=== PATIENT | female | born 1935 | race Caucasian/White ===

== ENCOUNTER 2022-06-24 20:28 | Inpatient (IN) | payer OTHER ==
[2022-06-24 23:39] LABS: #Eosinphils 0.4 thou/uL (0.0-0.7); #Lymphocytes 4.9 thou/uL (1.20-3.40); #Monocytes 0.9 thou/uL (0.11-0.59); %Basophils 0.3 % (0.0-1.0); %Eosinophils 2.6 % (0.0-10.0); %Lymphocytes 32.3 % (21.0-51.0); %Monocytes 5.7 % (0.0-10.0); %Neutrophils 59.2 % (42.0-75.0); Hemoglobin 11.3 g/dL (12.0-16.0); Mean Corpuscular HGB CONC 32.6 g/dL (32.0-36.0); Mean Corpuscular Hemoglobin 30.3 pg (27.0-31.0); Mean Corpuscular Volume 92.8 fL (78.0-98.0); Mean Platelet Volume 9.2 fL (7.4-10.4); Platelet Count 203 thou/uL (130-400); RBC Distribution Width 13.6 % (11.5-14.5); Red Blood Cell (RBC) Count 3.73 mill/uL (4.20-5.40); White Blood Cell (WBC) Count 15.2 thou/uL (4.8-10.8)
[2022-06-24 23:56] LABS: ALT (SGPT) 10 U/L (8-55); AST (SGOT) 12 U/L (5-34); Albumin 3.9 g/dL (3.4-4.8); Alkaline Phosphatase 74 U/L (40-110); Anion Gap 14 mmol/L (10-20); BUN (Urea Nitrogen) 29 mg/dL (9.8-20.1); Bilirubin, Total 0.5 mg/dL (0.2-1.2); Calc. Creatinine Clearance 0 mL/min (70-130); Calcium 9.5 mg/dL (7.8-10.44); Carbon Dioxide 21 mmol/L (23-31); Chloride 111 mmol/L (98-107); Estimated GFR 33; Globulin 2.5 g/dL (2.4-3.5); Glucose 120 mg/dL (83-110); Potassium 4.4 mmol/L (3.5-5.1); Protein, Total 6.4 g/dL (5.8-8.1); Sodium 142 mmol/L (136-145)
[2022-06-25 00:09] LABS: SARS-CoV-2 NAA Rapid Test Not Detected (NotDetected)
[2022-06-25] MEDS ORDERED: Ondansetron PF 4 MG/2 ML Vial IVP PRN (05:07)
[2022-06-25 05:58] LABS: #Basophils 0.1 thou/uL (0.0-0.2); #Eosinphils 0.4 thou/uL (0.0-0.7); #Lymphocytes 5.8 thou/uL (1.20-3.40); #Monocytes 0.8 thou/uL (0.11-0.59); #Neutrophils 7.3 thou/uL (1.40-6.50); %Basophils 0.4 % (0.0-1.0); %Eosinophils 2.9 % (0.0-10.0); %Lymphocytes 40.4 % (21.0-51.0); %Monocytes 5.6 % (0.0-10.0); %Neutrophils 50.7 % (42.0-75.0); Hemoglobin 11.5 g/dL (12.0-16.0); Mean Corpuscular HGB CONC 32.8 g/dL (32.0-36.0); Mean Corpuscular Hemoglobin 30.5 pg (27.0-31.0); Mean Platelet Volume 9.4 fL (7.4-10.4); Platelet Count 186 thou/uL (130-400); RBC Distribution Width 13.7 % (11.5-14.5); Red Blood Cell (RBC) Count 3.78 mill/uL (4.20-5.40); White Blood Cell (WBC) Count 14.4 thou/uL (4.8-10.8)
[2022-06-25 06:22] LABS: Anion Gap 13 mmol/L (10-20); BUN (Urea Nitrogen) 26 mg/dL (9.8-20.1); Calc. Creatinine Clearance 0 mL/min (70-130); Calcium 9.7 mg/dL (7.8-10.44); Carbon Dioxide 21 mmol/L (23-31); Chloride 108 mmol/L (98-107); Estimated GFR 39; Glucose 102 mg/dL (83-110); Magnesium 1.9 mg/dL (1.6-2.6); Sodium 138 mmol/L (136-145)
[2022-06-25 09:02] LABS: Bacteria/HPF 2+ HPF (None Seen); Bilirubin Negative (Negative); Blood, Urine Trace (Negative); Clarity Clear (Clear); Glucose, Urine (Dipstick) Normal (Negative); Ketone, Urine Negative (Negative); Leukocyte 250 Leu/uL (Negative); Nitrite Negative (Negative); Protein, Urine (Dipstick) 50 mg/dL (Neg-Trace); RBC/HPF 0-3 HPF (0-3); Squamous Epithelial 0-3 HPF (0-3); Urobilinogen Normal mg/dL (Less than 2); WBC/HPF 21-50 HPF (0-3); pH, Urine 6.5 (5.0-9.0)
[2022-06-25 09:05] LABS: Urine Culture Reflex Yes Yes
[2022-06-25 10:21] LABS: Troponin I 0.011 ng/mL (< 0.028)
[2022-06-25] MEDS ORDERED: Electrolyte Replacement Protocol 1 EACH FS SCH (10:45)
[2022-06-25] MEDS ORDERED: Magnesium 2 GM/50 ML(in water) 2 GM in Premix Bag 1 BAG IVPB SCH (10:45)
[2022-06-25] MEDS: cefTRIAXone\\ROCEPHIN 1 GM in Sodium Chloride 0.9% 100 ML IVPB SCH (11:47)
[2022-06-25] MEDS ORDERED: Lidocaine 1% 50ML VIAL ONE (12:20)
[2022-06-25] MEDS ORDERED: Gentamicin 80 MG/2 ML VIAL ONE (12:24)
[2022-06-25] MEDS ORDERED: hydrALAZINE 20 MG/ML VIAL SLOW IVP PRN (12:40)
[2022-06-25] MEDS ORDERED: Midazolam HCl 2 mg/2 ml Vial ONE (13:24)
[2022-06-25] MEDS ORDERED: fentaNYL Citrate/PF 100 MCG/2 ML SYRINGE ONE (13:25)
[2022-06-25] MEDS ORDERED: Dexmedetomidine 200 MCG/2 ML VIAL ONE (13:25)
[2022-06-25] MEDS ORDERED: Clindamycin/D5W 900 mg/50 ml Premix Bag ONE (13:37)
[2022-06-25] MEDS ORDERED: ePHEDrine 50 MG/ML VIAL ONE (13:56)
[2022-06-25] MEDS ORDERED: PROPOFOL 200 MG/20 ML VIAL ONE (13:56)
[2022-06-25] MEDS ORDERED: Lidocaine 1% MPF 2 ML VIAL ONE (13:56)
[2022-06-25] MEDS ORDERED: Ondansetron PF 4 MG/2 ML Vial ONE (13:56)
[2022-06-25] MEDS ORDERED: Amiodarone 150 MG/3 ML VIAL ONE (15:14)
[2022-06-25] MEDS ORDERED: Ondansetron HCl/PF 4 MG/2 ML Vial IVP PRN (15:39)
[2022-06-25] MEDS ORDERED: Promethazine HCl 25 MG/ML VIAL IM PRN (15:39)
[2022-06-25] MEDS ORDERED: Promethazine HCl 25 MG/ML VIAL IVPB PRN (15:39)
[2022-06-25] MEDS: Dronedarone HCl 400 MG TAB PO SCH (16:47)
[2022-06-25] MEDS: hydrALAZINE 10 MG TAB PO SCH ×2 (16:47→20:30)
[2022-06-25] MEDS: Acetaminophen 325 MG TAB PO PRN (16:50)
[2022-06-25 17:01] VITALS: BMI 37.2
[2022-06-25] MEDS: Acetaminophen/Codeine 30-300mg Tablet PO PRN ×2 (19:13→23:33)
[2022-06-25] MEDS: Doxycycline 100 MG CAP PO SCH (20:29)
[2022-06-26 04:31] LABS: #Basophils 0.1 thou/uL (0.0-0.2); #Eosinphils 0.3 thou/uL (0.0-0.7); #Lymphocytes 4.1 thou/uL (1.20-3.40); #Monocytes 0.9 thou/uL (0.11-0.59); #Neutrophils 10.2 thou/uL (1.40-6.50); %Basophils 0.3 % (0.0-1.0); %Eosinophils 2.2 % (0.0-10.0); %Lymphocytes 26.3 % (21.0-51.0); %Monocytes 5.6 % (0.0-10.0); %Neutrophils 65.5 % (42.0-75.0); Mean Corpuscular HGB CONC 33.3 g/dL (32.0-36.0); Mean Corpuscular Hemoglobin 31.2 pg (27.0-31.0); Mean Corpuscular Volume 93.7 fL (78.0-98.0); Mean Platelet Volume 9.7 fL (7.4-10.4); Platelet Count 196 thou/uL (130-400); RBC Distribution Width 13.7 % (11.5-14.5); Red Blood Cell (RBC) Count 3.53 mill/uL (4.20-5.40); White Blood Cell (WBC) Count 15.6 thou/uL (4.8-10.8)
[2022-06-26 04:43] LABS: Anion Gap 11 mmol/L (10-20); BUN (Urea Nitrogen) 23 mg/dL (9.8-20.1); Calc. Creatinine Clearance 45 mL/min (70-130); Calcium 8.7 mg/dL (7.8-10.44); Carbon Dioxide 22 mmol/L (23-31); Chloride 109 mmol/L (98-107); Estimated GFR 36; Glucose 111 mg/dL (83-110); Potassium 4.2 mmol/L (3.5-5.1); Sodium 138 mmol/L (136-145)
[2022-06-26] MEDS ORDERED: Losartan 25 MG TAB PO SCH (09:00)
[2022-06-26] MEDS ORDERED: Non-Formulary Item 1 EACH (Losartan Potassium [Cozaar] 50 MG Tab) PO SCH (09:00)
[2022-06-26] MEDS ORDERED: Non-Formulary Item 1 EACH (Sertraline Hcl [Sertraline Hcl] 50 MG Tablet) PO SCH (09:00)
[2022-06-26] MEDS ORDERED: Non-Formulary Item 1 EACH (Omeprazole [Omeprazole] 20 MG Capsule.Dr) PO SCH (09:00)
[2022-06-26] MEDS: Dronedarone HCl 400 MG TAB PO SCH ×2 (09:10→17:57)
[2022-06-26] MEDS: hydrALAZINE 10 MG TAB PO SCH ×3 (09:11→21:49)
[2022-06-26] MEDS: Amlodipine 10 MG TAB PO SCH (09:11)
[2022-06-26] MEDS: Doxycycline 100 MG CAP PO SCH ×2 (09:11→21:50)
[2022-06-26] MEDS: cefTRIAXone\\ROCEPHIN 1 GM in Sodium Chloride 0.9% 100 ML IVPB SCH (09:17)
[2022-06-26] MEDS: Acetaminophen/Codeine 30-300mg Tablet PO PRN ×2 (14:01→21:55)
[2022-06-27 04:04] LABS: #Eosinphils 0.4 thou/uL (0.0-0.7); #Monocytes 1.2 thou/uL (0.11-0.59); #Neutrophils 8.7 thou/uL (1.40-6.50); %Basophils 0.3 % (0.0-1.0); %Eosinophils 2.6 % (0.0-10.0); %Monocytes 8.2 % (0.0-10.0); %Neutrophils 60.9 % (42.0-75.0); Hemoglobin 10.4 g/dL (12.0-16.0); Mean Corpuscular HGB CONC 32.2 g/dL (32.0-36.0); Mean Corpuscular Hemoglobin 30.7 pg (27.0-31.0); Mean Corpuscular Volume 95.3 fL (78.0-98.0); Mean Platelet Volume 9.6 fL (7.4-10.4); Platelet Count 200 thou/uL (130-400); Red Blood Cell (RBC) Count 3.38 mill/uL (4.20-5.40); White Blood Cell (WBC) Count 14.3 thou/uL (4.8-10.8)
[2022-06-27 04:30] LABS: Anion Gap 13 mmol/L (10-20); BUN (Urea Nitrogen) 28 mg/dL (9.8-20.1); Calc. Creatinine Clearance 31 mL/min (70-130); Calcium 8.8 mg/dL (7.8-10.44); Carbon Dioxide 21 mmol/L (23-31); Chloride 106 mmol/L (98-107); Estimated GFR 24; Glucose 110 mg/dL (83-110); Magnesium 1.9 mg/dL (1.6-2.6); Potassium 4.6 mmol/L (3.5-5.1); Sodium 135 mmol/L (136-145)
[2022-06-27] MEDS ORDERED: Magnesium 2 GM/50 ML(in water) 2 GM in Premix Bag 1 BAG IVPB SCH (08:00)
[2022-06-27] MEDS: Sodium Chloride 0.9% 1,000 ML IV SCH ×2 (09:53→21:55)
[2022-06-27] MEDS: Dronedarone HCl 400 MG TAB PO SCH ×2 (09:54→16:53)
[2022-06-27] MEDS: Doxycycline 100 MG CAP PO SCH ×2 (09:55→21:54)
[2022-06-27] MEDS: Amlodipine 10 MG TAB PO SCH (09:55)
[2022-06-27] MEDS: cefTRIAXone\\ROCEPHIN 1 GM in Sodium Chloride 0.9% 100 ML IVPB SCH (09:56)
[2022-06-27] MEDS: Acetaminophen 325 MG TAB PO PRN (09:56)
[2022-06-27] MEDS: hydrALAZINE 10 MG TAB PO SCH ×3 (09:56→21:54)
[2022-06-27] MEDS: Acetaminophen/Codeine 30-300mg Tablet PO PRN (12:01)
[2022-06-27] MEDS ORDERED: Cefdinir 300 MG CAP PO SCH ×2 (21:00→22:00)
[2022-06-28 05:13] LABS: Anion Gap 14 mmol/L (10-20); BUN (Urea Nitrogen) 38 mg/dL (9.8-20.1); Calc. Creatinine Clearance 26 mL/min (70-130); Calcium 8.7 mg/dL (7.8-10.44); Carbon Dioxide 20 mmol/L (23-31); Chloride 105 mmol/L (98-107); Estimated GFR 19; Glucose 87 mg/dL (83-110); Magnesium 2.4 mg/dL (1.6-2.6); Potassium 4.4 mmol/L (3.5-5.1); Sodium 135 mmol/L (136-145)
[2022-06-28 05:27] LABS: #Basophils 0.1 thou/uL (0.0-0.2); #Eosinphils 0.3 thou/uL (0.0-0.7); #Lymphocytes 3.4 thou/uL (1.20-3.40); #Monocytes 0.9 thou/uL (0.11-0.59); #Neutrophils 8.7 thou/uL (1.40-6.50); %Basophils 0.4 % (0.0-1.0); %Eosinophils 2.4 % (0.0-10.0); %Lymphocytes 25.6 % (21.0-51.0); %Monocytes 6.5 % (0.0-10.0); %Neutrophils 65.2 % (42.0-75.0); Hemoglobin 10.2 g/dL (12.0-16.0); Mean Corpuscular HGB CONC 32.4 g/dL (32.0-36.0); Mean Corpuscular Hemoglobin 30.7 pg (27.0-31.0); Mean Corpuscular Volume 94.8 fL (78.0-98.0); Mean Platelet Volume 9.3 fL (7.4-10.4); Platelet Count 187 thou/uL (130-400); RBC Distribution Width 13.8 % (11.5-14.5); Red Blood Cell (RBC) Count 3.32 mill/uL (4.20-5.40); White Blood Cell (WBC) Count 13.3 thou/uL (4.8-10.8)
[2022-06-28] MEDS: Sodium Chloride 0.9% 1,000 ML IV SCH (06:24)
[2022-06-28] MEDS: Amlodipine 10 MG TAB PO SCH (08:07)
[2022-06-28] MEDS: Doxycycline 100 MG CAP PO SCH (08:07)
[2022-06-28] MEDS: hydrALAZINE 10 MG TAB PO SCH (08:08)
[2022-06-28] MEDS: Dronedarone HCl 400 MG TAB PO SCH (08:08)
[2022-06-28] MEDS ORDERED: Saccharomyces boulardii 250 MG CAP PO SCH (09:00)
[2022-06-28 11:41] VITALS: BP 115/56; TEMP 98.1
[2022-06-28] MEDS ORDERED: Cefdinir 300 MG CAP PO SCH (21:00)
== END 2022-06-28 14:26 | disposition home or self-care (01) | DRG 243 ==
LOC: ERS 20:28 → IMCU/EMU 22:25 → ERHOLD 22:38 → IMCU/EMU 06-25 09:27 → OBSVTOIN 06-26 18:21 → 2NO 06-27 17:06
PROVIDERS: ADMIT Internal Medicine; ATTEND Internal Medicine
PROC: 0JH606Z Insertion of Pacemaker, Dual Chamber into Chest Subcutaneous Tissue and Fascia, Open Approach (ICD-10-PCS; principal; 2022-06-25)
PROC: 02H60JZ Insertion of Pacemaker Lead into Right Atrium, Open Approach (ICD-10-PCS; 2022-06-25)
PROC: 02HK0JZ Insertion of Pacemaker Lead into Right Ventricle, Open Approach (ICD-10-PCS; 2022-06-25)
DX: I49.5 Sick sinus syndrome (principal); N17.9 Acute kidney failure, unspecified; N39.0 Urinary tract infection, site not specified; Z20.822 Contact with and (suspected) exposure to COVID-19; D63.1 Anemia in chronic kidney disease; N18.30 Chronic kidney disease, stage 3 unspecified; R00.1 Bradycardia, unspecified; I12.9 Hypertensive chronic kidney disease with stage 1 through stage 4 chronic kidney disease, or unspecified chronic kidney disease; K21.9 Gastro-esophageal reflux disease without esophagitis; F03.90 Unspecified dementia, unspecified severity, without behavioral disturbance, psychotic disturbance, mood disturbance, and anxiety; E83.42 Hypomagnesemia; E66.9 Obesity, unspecified; F41.9 Anxiety disorder, unspecified; D72.829 Elevated white blood cell count, unspecified; B96.20 Unspecified Escherichia coli [E. coli] as the cause of diseases classified elsewhere; D53.9 Nutritional anemia, unspecified; I48.91 Unspecified atrial fibrillation; Z88.0 Allergy status to penicillin; Z98.890 Other specified postprocedural states; Z68.37 Body mass index [BMI] 37.0-37.9, adult
CPT/HCPCS: 33208; 36415; 71045; 76942; 80048; 80053; 81001; 83735; 84443; 84484; 85025; 87077; 87086; 87186; 92960; 93005; 93010; 93306; 93798; 96374; 96375; 96376; C1785; C1898; G0378; J0282; J0360; J0696; J1580; J2250; J2405; J2704; J3475; J3490; J7050; U0002

== ENCOUNTER 2022-07-08 20:06 | Inpatient (IN) | payer OTHER ==
[2022-07-08 20:55] LABS: Hemoglobin 11.8 g/dL (12.0-16.0); Mean Corpuscular HGB CONC 31.8 g/dL (32.0-36.0); Mean Corpuscular Hemoglobin 29.5 pg (27.0-31.0); Mean Corpuscular Volume 92.5 fL (78.0-98.0); Platelet Count 300 thou/uL (130-400); RBC Distribution Width 13.7 % (11.5-14.5); White Blood Cell (WBC) Count 24.3 thou/uL (4.8-10.8)
[2022-07-08 21:16] LABS: ALT (SGPT) 10 U/L (8-55); AST (SGOT) 14 U/L (5-34); Albumin 4.2 g/dL (3.4-4.8); Alkaline Phosphatase 79 U/L (40-110); Anion Gap 12 mmol/L (10-20); BUN (Urea Nitrogen) 27 mg/dL (9.8-20.1); Bilirubin, Total 0.8 mg/dL (0.2-1.2); Calc. Creatinine Clearance 0 mL/min (70-130); Carbon Dioxide 23 mmol/L (23-31); Chloride 107 mmol/L (98-107); Estimated GFR 27; Globulin 3.2 g/dL (2.4-3.5); Glucose 116 mg/dL (83-110); Lipase 98 U/L (8-78); Potassium 4.2 mmol/L (3.5-5.1); Protein, Total 7.4 g/dL (5.8-8.1); Sodium 138 mmol/L (136-145)
[2022-07-08 21:21] LABS: Band 2 % (5-11); Lymphocytes 39 % (21-51); MDiff Complete? YES; Monocytes 1 % (0-10); Neutrophil 58 % (42-75)
[2022-07-08] MEDS ORDERED: Cefepime 2 GM VIAL ONE (23:06)
[2022-07-08 23:07] LABS: Bilirubin Negative (Negative); Blood, Urine Trace (Negative); Clarity Clear (Clear); Glucose, Urine (Dipstick) Normal (Negative); Ketone, Urine Negative (Negative); Leukocyte Negative Leu/uL (Negative); Nitrite Negative (Negative); Protein, Urine (Dipstick) 200 mg/dL (Neg-Trace); Specific Gravity, Urine 1.018 (1.002-1.036); Urobilinogen Normal mg/dL (Less than 2)
[2022-07-08 23:17] LABS: Bacteria/HPF 1+ HPF (None Seen); RBC/HPF 0-3 HPF (0-3); WBC/HPF 0-3 HPF (0-3); Yeast-Budding Rare HPF (None Seen)
[2022-07-09] MEDS ORDERED: Ondansetron PF 4 MG/2 ML Vial ONE (00:58)
[2022-07-09] MEDS ORDERED: Ondansetron PF 4 MG/2 ML Vial IVP PRN (01:49)
[2022-07-09] MEDS ORDERED: Acetaminophen 325 MG TAB PO PRN (01:49)
[2022-07-09] MEDS ORDERED: Pantoprazole 40 MG VIAL IVP SCH ×3 (02:00→10:15)
[2022-07-09] MEDS ORDERED: Sodium Chloride 0.9% 1,000 ML IV SCH (02:00)
[2022-07-09] MEDS ORDERED: Docusate 100 MG CAP PO PRN (02:06)
[2022-07-09 02:55] VITALS: BMI 35.9
[2022-07-09] MEDS: metroNIDAZOLE 500 MG in Premix Bag 1 BAG IVPB SCH ×3 (03:41→22:03)
[2022-07-09 04:35] LABS: ALT (SGPT) 7 U/L (8-55); AST (SGOT) 13 U/L (5-34); Albumin 3.8 g/dL (3.4-4.8); Alkaline Phosphatase 70 U/L (40-110); Anion Gap 12 mmol/L (10-20); BUN (Urea Nitrogen) 28 mg/dL (9.8-20.1); Bilirubin, Total 0.6 mg/dL (0.2-1.2); Calc. Creatinine Clearance 38 mL/min (70-130); Calcium 9.4 mg/dL (7.8-10.44); Carbon Dioxide 22 mmol/L (23-31); Chloride 107 mmol/L (98-107); Estimated GFR 30; Globulin 3.1 g/dL (2.4-3.5); Glucose 118 mg/dL (83-110); Lipase 63 U/L (8-78); Potassium 4.4 mmol/L (3.5-5.1); Protein, Total 6.9 g/dL (5.8-8.1); Sodium 137 mmol/L (136-145)
[2022-07-09 04:54] LABS: Band 1 % (5-11); Hemoglobin 11.6 g/dL (12.0-16.0); Lymphocytes 34 % (21-51); MDiff Complete? YES; Mean Corpuscular HGB CONC 32.1 g/dL (32.0-36.0); Mean Corpuscular Hemoglobin 29.9 pg (27.0-31.0); Mean Corpuscular Volume 93.1 fL (78.0-98.0); Mean Platelet Volume 9.1 fL (7.4-10.4); Monocytes 5 % (0-10); Neutrophil 59 % (42-75); Platelet Count 264 thou/uL (130-400); RBC Distribution Width 13.7 % (11.5-14.5); Reactive Lymphocytes 1 % (0-10); Red Blood Cell (RBC) Count 3.89 mill/uL (4.20-5.40); White Blood Cell (WBC) Count 24.3 thou/uL (4.8-10.8)
[2022-07-09] MEDS: Dronedarone HCl 400 MG TAB PO SCH ×2 (08:59→17:50)
[2022-07-09] MEDS: Apixaban 2.5 MG TAB PO SCH ×2 (08:59→22:03)
[2022-07-09] MEDS: Polyethylene Glycol 3350 17 GM Packet PO SCH (09:00)
[2022-07-09] MEDS ORDERED: FLU VACC QS2022-23(65YR UP)/PF 240 MCG/0.7 ML SYRINGE IM ONE (09:00)
[2022-07-09] MEDS: cefTRIAXone\\ROCEPHIN 2 GM in Sodium Chloride 0.9% 100 ML IVPB SCH (11:10)
[2022-07-09] MEDS: Pantoprazole 40 MG VIAL IVP SCH (22:03)
[2022-07-10] MEDS: metroNIDAZOLE 500 MG in Premix Bag 1 BAG IVPB SCH ×2 (03:35→11:32)
[2022-07-10 05:08] LABS: #Basophils 0.1 thou/uL (0.0-0.2); #Eosinphils 0.3 thou/uL (0.0-0.7); #Neutrophils 10.7 thou/uL (1.40-6.50); %Basophils 0.5 % (0.0-1.0); %Eosinophils 1.6 % (0.0-10.0); %Lymphocytes 29.4 % (21.0-51.0); %Monocytes 6.1 % (0.0-10.0); %Neutrophils 62.4 % (42.0-75.0); Hemoglobin 10.1 g/dL (12.0-16.0); Mean Corpuscular HGB CONC 32.3 g/dL (32.0-36.0); Mean Corpuscular Hemoglobin 30.3 pg (27.0-31.0); Mean Corpuscular Volume 93.8 fL (78.0-98.0); Mean Platelet Volume 9.1 fL (7.4-10.4); Platelet Count 219 thou/uL (130-400); RBC Distribution Width 13.5 % (11.5-14.5); Red Blood Cell (RBC) Count 3.33 mill/uL (4.20-5.40); White Blood Cell (WBC) Count 17.1 thou/uL (4.8-10.8)
[2022-07-10 05:19] LABS: Lactic Acid 0.7 mmol/L (0.5-2.2)
[2022-07-10 05:28] LABS: ALT (SGPT) Less than 7 U/L (8-55); AST (SGOT) 17 U/L (5-34); Albumin 3.2 g/dL (3.4-4.8); Alkaline Phosphatase 60 U/L (40-110); Anion Gap 13 mmol/L (10-20); BUN (Urea Nitrogen) 25 mg/dL (9.8-20.1); Bilirubin, Total 0.4 mg/dL (0.2-1.2); Calc. Creatinine Clearance 38 mL/min (70-130); Carbon Dioxide 19 mmol/L (23-31); Chloride 112 mmol/L (98-107); Estimated GFR 31; Globulin 2.9 g/dL (2.4-3.5); Glucose 94 mg/dL (83-110); Potassium 4.5 mmol/L (3.5-5.1); Protein, Total 6.1 g/dL (5.8-8.1); Sodium 139 mmol/L (136-145)
[2022-07-10] MEDS: Polyethylene Glycol 3350 17 GM Packet PO SCH (07:57)
[2022-07-10] MEDS: Apixaban 2.5 MG TAB PO SCH (07:57)
[2022-07-10] MEDS: Dronedarone HCl 400 MG TAB PO SCH ×2 (07:57→17:08)
[2022-07-10] MEDS: Pantoprazole 40 MG VIAL IVP SCH (07:58)
[2022-07-10] MEDS: cefTRIAXone\\ROCEPHIN 2 GM in Sodium Chloride 0.9% 100 ML IVPB SCH (11:25)
[2022-07-10 12:27] VITALS: BP 140/74; TEMP 98.6
== END 2022-07-10 17:41 | DRG 392 ==
LOC: ERS 20:06 → 2NO 07-09 01:28 → OBSVTOIN 07-10 11:11
PROVIDERS: ADMIT Internal Medicine; ATTEND Internal Medicine Geriatric Medicine
DX: K57.92 Diverticulitis of intestine, part unspecified, without perforation or abscess without bleeding (principal); I50.32 Chronic diastolic (congestive) heart failure; I13.0 Hypertensive heart and chronic kidney disease with heart failure and stage 1 through stage 4 chronic kidney disease, or unspecified chronic kidney disease; I48.0 Paroxysmal atrial fibrillation; I49.5 Sick sinus syndrome; N18.30 Chronic kidney disease, stage 3 unspecified; K21.9 Gastro-esophageal reflux disease without esophagitis; F03.90 Unspecified dementia, unspecified severity, without behavioral disturbance, psychotic disturbance, mood disturbance, and anxiety; K44.9 Diaphragmatic hernia without obstruction or gangrene; D72.829 Elevated white blood cell count, unspecified; J45.909 Unspecified asthma, uncomplicated; F32.A Depression, unspecified; Z20.822 Contact with and (suspected) exposure to COVID-19; Z95.0 Presence of cardiac pacemaker; Z88.5 Allergy status to narcotic agent; Z88.0 Allergy status to penicillin; Z88.1 Allergy status to other antibiotic agents; Z79.01 Long term (current) use of anticoagulants; Z79.82 Long term (current) use of aspirin; Z79.51 Long term (current) use of inhaled steroids; Z79.899 Other long term (current) drug therapy; Z98.890 Other specified postprocedural states
CPT/HCPCS: 36415; 51701; 71045; 74176; 80053; 81003; 81015; 83605; 83690; 84145; 84484; 85025; 85060; 87040; 87086; 88184; 88185; 93005; 96365; 96366; 96367; 96375; 96376; C9113; G0378; J0692; J0696; J2405; J3490; J7050; U0003; U0005

== ENCOUNTER 2024-06-29 13:08 | Emergency (ER) | payer MEDICARE, OTHER ==
[2024-06-29 14:06] LABS: #Basophils 0.04 10x3/uL (0.0-0.2); %Basophils 0.3 % (0.0-1.0); %Eosinophils 4.3 % (0.0-10.0); %Lymphocytes 35.6 % (21.0-51.0); %Monocytes 6.8 % (0.0-10.0); %Neutrophils 52.5 % (42.0-75.0); Hematocrit 25.9 % (36.0-47.0); Mean Corpuscular HGB CONC 30.9 g/dL (32.0-36.0); Mean Corpuscular Hemoglobin 30.1 pg (27.0-31.0); Mean Corpuscular Volume 97.4 fL (78.0-98.0); Mean Platelet Volume 11.1 fL (7.4-10.4); Platelet Count 291 10x3/uL (130-400); RBC Distribution Width 15.3 % (11.5-14.5); Red Blood Cell (RBC) Count 2.66 mill/uL (4.20-5.40)
[2024-06-29 14:38] LABS: ALT (SGPT) 6 U/L (8-55); AST (SGOT) 10 U/L (5-34); Albumin 3.4 g/dL (3.4-4.8); Alkaline Phosphatase 76 U/L (40-110); Anion Gap 16 mmol/L (10-20); BUN (Urea Nitrogen) 35 mg/dL (9.8-20.1); Bilirubin, Total 0.3 mg/dL (0.2-1.2); Calc. Creatinine Clearance 0 mL/min (70-130); Calcium 9.1 mg/dL (7.8-10.44); Carbon Dioxide 18 mmol/L (23-31); Chloride 115 mmol/L (98-107); Estimated GFR 16; Glucose 111 mg/dL (83-110); Potassium 5.1 mmol/L (3.5-5.1); Protein, Total 6.4 g/dL (5.8-8.1); Sodium 144 mmol/L (136-145)
== END 2024-06-29 16:23 | disposition home or self-care (01) ==
LOC: ERS 13:08
DX: D64.9 Anemia, unspecified (principal); N18.9 Chronic kidney disease, unspecified; Z55.6 Problems related to health literacy; Z95.0 Presence of cardiac pacemaker
CPT/HCPCS: 36415; 71045; 80053; 85025; 86850; 86900; 86901; 93005

== ENCOUNTER 2024-07-31 02:24 | Emergency (ER) | payer OTHER ==
[2024-07-31 03:17] LABS: #Basophils 0.06 10x3/uL (0.0-0.2); %Basophils 0.5 % (0.0-1.0); %Eosinophils 3.9 % (0.0-10.0); %Lymphocytes 32.2 % (21.0-51.0); %Monocytes 6.5 % (0.0-10.0); %Neutrophils 56.6 % (42.0-75.0); Hematocrit 27.4 % (36.0-47.0); Hemoglobin 8.4 g/dL (12.0-16.0); Mean Corpuscular HGB CONC 30.7 g/dL (32.0-36.0); Mean Corpuscular Volume 97.9 fL (78.0-98.0); Mean Platelet Volume 11.4 fL (7.4-10.4); Platelet Count 248 10x3/uL (130-400); RBC Distribution Width 15.3 % (11.5-14.5)
[2024-07-31 03:30] LABS: INR-International Normal Ratio 1.3; PTT 23.5 sec (22.9-36.1); Prothrombin Time 16.3 sec (12.0-14.7)
[2024-07-31 03:32] LABS: ALT (SGPT) 7 U/L (8-55); AST (SGOT) 12 U/L (5-34); Albumin 3.5 g/dL (3.4-4.8); Alkaline Phosphatase 79 U/L (40-110); Anion Gap 14 mmol/L (10-20); BUN (Urea Nitrogen) 33 mg/dL (9.8-20.1); Bilirubin, Total 0.4 mg/dL (0.2-1.2); Calc. Creatinine Clearance 0 mL/min (70-130); Calcium 9.4 mg/dL (7.8-10.44); Carbon Dioxide 18 mmol/L (23-31); Chloride 114 mmol/L (98-107); Estimated GFR 20; Globulin 2.8 g/dL (2.4-3.5); Glucose 104 mg/dL (83-110); Potassium 4.6 mmol/L (3.5-5.1); Protein, Total 6.3 g/dL (5.8-8.1); Sodium 141 mmol/L (136-145)
[2024-07-31 06:16] LABS: Bacteria/HPF 3+ HPF (None Seen); Bilirubin Negative (Negative); Blood, Urine 3+ (Negative); CAUTI Indications for Culture Dysuria,urgency,freq; Clarity Turbid (Clear); Glucose, Urine (Dipstick) Normal (Negative); Ketone, Urine Negative (Negative); Leukocyte 75 Leu/uL (Negative); Nitrite Negative (Negative); Protein, Urine (Dipstick) 50 mg/dL (Neg-Trace); RBC/HPF Greater than 50 HPF (0-3); Urobilinogen Normal mg/dL (Less than 2); WBC/HPF Greater than 50 HPF (0-3)
[2024-07-31 06:19] LABS: Urine Culture Reflex Yes Yes
== END 2024-07-31 06:55 | disposition home or self-care (01) ==
LOC: ERS 02:24
DX: N95.0 Postmenopausal bleeding (principal); N39.0 Urinary tract infection, site not specified; I12.9 Hypertensive chronic kidney disease with stage 1 through stage 4 chronic kidney disease, or unspecified chronic kidney disease; N18.4 Chronic kidney disease, stage 4 (severe)
CPT/HCPCS: 51701; 76856; 80053; 81001; 85025; 85610; 85730; 87086; 93976

== ENCOUNTER 2024-10-27 04:47 | Inpatient (IN) | payer OTHER ==
[2024-10-27] MEDS ORDERED: Pantoprazole 40 MG VIAL ONE ×2 (05:02→09:14)
[2024-10-27 05:26] LABS: #Basophils 0.04 10x3/uL (0.0-0.2); %Basophils 0.2 % (0.0-1.0); %Eosinophils 1.8 % (0.0-10.0); %Lymphocytes 27.5 % (21.0-51.0); %Monocytes 5.5 % (0.0-10.0); %Neutrophils 64.4 % (42.0-75.0); Hematocrit 22.9 % (36.0-47.0); Hemoglobin 7.2 g/dL (12.0-16.0); Mean Corpuscular HGB CONC 31.4 g/dL (32.0-36.0); Mean Corpuscular Hemoglobin 29.5 pg (27.0-31.0); Mean Corpuscular Volume 93.9 fL (78.0-98.0); Mean Platelet Volume 11.5 fL (7.4-10.4); Platelet Count 246 10x3/uL (130-400); RBC Distribution Width 14.5 % (11.5-14.5); Red Blood Cell (RBC) Count 2.44 mill/uL (4.20-5.40)
[2024-10-27 05:55] LABS: Troponin I 0.017 ng/mL (< 0.028)
[2024-10-27 05:58] LABS: Anion Gap 11 mmol/L (10-20); Carbon Dioxide 19 mmol/L (23-31); Chloride 118 mmol/L (98-107); Potassium 4.9 mmol/L (3.5-5.1); Sodium 143 mmol/L (136-145)
[2024-10-27 05:59] LABS: ALT (SGPT) 7 U/L (Less than 34); AST (SGOT) 15 U/L (11-34); Albumin 3.2 g/dL (3.1-4.5); Alkaline Phosphatase 60 U/L (40-110); BUN (Urea Nitrogen) 47 mg/dL (9.8-20.1); Bilirubin, Total 0.3 mg/dL (0.3-1.2); Calc. Creatinine Clearance 0 mL/min (70-130); Calcium 8.9 mg/dL (7.6-10.4); Estimated GFR 17; Globulin 2.6 g/dL (2.4-3.5); Glucose 121 mg/dL (83-110); Lipase 76 U/L (8-78); Protein, Total 5.8 g/dL (5.8-8.1)
[2024-10-27 06:03] LABS: INR-International Normal Ratio 1.4; PTT 28.5 sec (22.9-36.1); Prothrombin Time 16.7 sec (12.0-14.7)
[2024-10-27] MEDS ORDERED: Bisacodyl 5 MG TAB PO PRN (07:35)
[2024-10-27] MEDS: [UNRECOGNIZED DRUG - OTHER] IV SCH (08:26)
[2024-10-27] MEDS: HUM PROTHROMBIN CPLX IV SCH (08:26)
[2024-10-27] MEDS: ADMIXTURE FEE IV SCH (08:26)
[2024-10-27] MEDS ORDERED: HUM PROTHROMBIN CPLX IV SCH (08:30)
[2024-10-27] MEDS ORDERED: ADMIXTURE FEE IV SCH (08:30)
[2024-10-27] MEDS ORDERED: [UNRECOGNIZED DRUG - OTHER] IV SCH (08:30)
[2024-10-27] MEDS ORDERED: Phytonadione 10 MG/ML AMP ONE (08:34)
[2024-10-27 09:13] LABS: #Basophils 0.03 10x3/uL (0.0-0.2); %Basophils 0.2 % (0.0-1.0); %Eosinophils 0.8 % (0.0-10.0); %Lymphocytes 19.3 % (21.0-51.0); %Neutrophils 74.3 % (42.0-75.0); Hematocrit 29.1 % (36.0-47.0); Hemoglobin 9.4 g/dL (12.0-16.0); Mean Corpuscular HGB CONC 32.3 g/dL (32.0-36.0); Mean Corpuscular Hemoglobin 30.1 pg (27.0-31.0); Mean Corpuscular Volume 93.3 fL (78.0-98.0); Mean Platelet Volume 11.8 fL (7.4-10.4); Platelet Count 167 10x3/uL (130-400); RBC Distribution Width 14.6 % (11.5-14.5); Red Blood Cell (RBC) Count 3.12 mill/uL (4.20-5.40)
[2024-10-27] MEDS ORDERED: Sodium Chloride 0.9% 100 ML ONE (09:14)
[2024-10-27] MEDS: Pantoprazole 80 MG, Admixture Fee 1 EACH in Sodium Chloride 0.9% 100 ML IVPB SCH ×2 (10:04→21:28)
[2024-10-28 02:54] LABS: #Basophils Less than 0.03 10x3/uL (0.0-0.2); %Basophils 0.2 % (0.0-1.0); %Eosinophils 1.3 % (0.0-10.0); %Lymphocytes 28.8 % (21.0-51.0); %Neutrophils 63.3 % (42.0-75.0); Hematocrit 27.1 % (36.0-47.0); Hemoglobin 8.6 g/dL (12.0-16.0); Mean Corpuscular HGB CONC 31.7 g/dL (32.0-36.0); Mean Corpuscular Hemoglobin 30.3 pg (27.0-31.0); Mean Corpuscular Volume 95.4 fL (78.0-98.0); Mean Platelet Volume 11.3 fL (7.4-10.4); Platelet Count 152 10x3/uL (130-400); RBC Distribution Width 15.3 % (11.5-14.5); Red Blood Cell (RBC) Count 2.84 mill/uL (4.20-5.40)
[2024-10-28 03:31] LABS: Anion Gap 10 mmol/L (10-20); BUN (Urea Nitrogen) 45 mg/dL (9.8-20.1); Calc. Creatinine Clearance 27 mL/min (70-130); Calcium 8.5 mg/dL (7.8-10.44); Carbon Dioxide 20 mmol/L (23-31); Chloride 120 mmol/L (98-107); Estimated GFR 17; Glucose 94 mg/dL (83-110); Potassium 4.6 mmol/L (3.5-5.1); Sodium 145 mmol/L (136-145)
[2024-10-28] MEDS: Lactated Ringer's 1,000 ML IV SCH (13:02)
[2024-10-28 19:05] LABS: Hematocrit 29.9 % (36.0-47.0); Hemoglobin 9.4 g/dL (12.0-16.0)
[2024-10-28] MEDS: Pantoprazole 40 MG DR.TAB PO SCH (20:25)
[2024-10-28] MEDS ORDERED: Pantoprazole 40 MG GRANULES PACKET PO SCH (21:00)
[2024-10-29 06:05] LABS: #Basophils 0.03 10x3/uL (0.0-0.2); %Basophils 0.2 % (0.0-1.0); %Eosinophils 2.8 % (0.0-10.0); %Lymphocytes 28.9 % (21.0-51.0); %Monocytes 7.3 % (0.0-10.0); %Neutrophils 60.4 % (42.0-75.0); Hematocrit 29.2 % (36.0-47.0); Hemoglobin 9.3 g/dL (12.0-16.0); Mean Corpuscular HGB CONC 31.8 g/dL (32.0-36.0); Mean Corpuscular Hemoglobin 30.2 pg (27.0-31.0); Mean Corpuscular Volume 94.8 fL (78.0-98.0); Platelet Count 157 10x3/uL (130-400); RBC Distribution Width 15.1 % (11.5-14.5); Red Blood Cell (RBC) Count 3.08 mill/uL (4.20-5.40)
[2024-10-29 06:34] LABS: ALT (SGPT) Less than 7 U/L (Less than 34); AST (SGOT) 14 U/L (11-34); Albumin 3.2 g/dL (3.1-4.5); Alkaline Phosphatase 54 U/L (40-110); Anion Gap 13 mmol/L (10-20); BUN (Urea Nitrogen) 38 mg/dL (9.8-20.1); Bilirubin, Total 0.6 mg/dL (0.3-1.2); Calc. Creatinine Clearance 26 mL/min (70-130); Calcium 8.4 mg/dL (7.8-10.44); Carbon Dioxide 18 mmol/L (23-31); Chloride 115 mmol/L (98-107); Estimated GFR 19; Globulin 2.7 g/dL (2.4-3.5); Glucose 93 mg/dL (83-110); Potassium 4.5 mmol/L (3.5-5.1); Protein, Total 5.9 g/dL (5.8-8.1); Sodium 141 mmol/L (136-145)
[2024-10-29] MEDS ORDERED: Non-Formulary Item 1 EACH (Sertraline Hcl [Sertraline Hcl] 50 MG Tablet) PO SCH (09:00)
[2024-10-29] MEDS: Sertraline 25 MG TAB PO SCH (09:35)
[2024-10-29] MEDS: hydrALAZINE 25 MG TAB PO SCH (09:36)
[2024-10-29] MEDS: Amlodipine 10 MG TAB PO SCH (09:36)
[2024-10-29] MEDS: Folic Acid 1 MG TAB PO SCH (09:36)
[2024-10-29] MEDS: Dronedarone HCl 400 MG TAB PO SCH (17:40)
[2024-10-30 04:04] VITALS: BMI 38.6
[2024-10-30 08:31] VITALS: TEMP 98.7
[2024-10-30 09:37] LABS: #Basophils 0.05 10x3/uL (0.0-0.2); %Basophils 0.4 % (0.0-1.0); %Eosinophils 2.6 % (0.0-10.0); %Lymphocytes 26.4 % (21.0-51.0); %Monocytes 6.7 % (0.0-10.0); %Neutrophils 63.5 % (42.0-75.0); Hematocrit 32.2 % (36.0-47.0); Hemoglobin 10.4 g/dL (12.0-16.0); Mean Corpuscular HGB CONC 32.3 g/dL (32.0-36.0); Mean Corpuscular Hemoglobin 30.1 pg (27.0-31.0); Mean Corpuscular Volume 93.3 fL (78.0-98.0); Mean Platelet Volume 11.6 fL (7.4-10.4); Platelet Count 172 10x3/uL (130-400); RBC Distribution Width 14.6 % (11.5-14.5); Red Blood Cell (RBC) Count 3.45 mill/uL (4.20-5.40)
[2024-10-30 09:55] LABS: Anion Gap 11 mmol/L (10-20); BUN (Urea Nitrogen) 28 mg/dL (9.8-20.1); Calc. Creatinine Clearance 26 mL/min (70-130); Calcium 8.9 mg/dL (7.8-10.44); Carbon Dioxide 20 mmol/L (23-31); Chloride 115 mmol/L (98-107); Estimated GFR 19; Glucose 131 mg/dL (83-110); Potassium 4.1 mmol/L (3.5-5.1); Sodium 142 mmol/L (136-145)
[2024-10-30 10:04] VITALS: BP 174/88
== END 2024-10-30 13:26 | disposition home or self-care (01) | DRG 378 ==
LOC: ERS 04:47 → ERHOLD 07:17 → IMCU/EMU 16:36 → T4-B 10-28 11:27
PROVIDERS: ADMIT Student in an Organized Health Care Education/Training Program; ATTEND Internal Medicine
PROC: 30233N1 Transfusion of Nonautologous Red Blood Cells into Peripheral Vein, Percutaneous Approach (ICD-10-PCS; principal; 2024-10-27)
DX: K57.33 Diverticulitis of large intestine without perforation or abscess with bleeding (principal); I13.0 Hypertensive heart and chronic kidney disease with heart failure and stage 1 through stage 4 chronic kidney disease, or unspecified chronic kidney disease; I50.32 Chronic diastolic (congestive) heart failure; N18.30 Chronic kidney disease, stage 3 unspecified; I48.0 Paroxysmal atrial fibrillation; Z66 Do not resuscitate; K21.9 Gastro-esophageal reflux disease without esophagitis; E87.8 Other disorders of electrolyte and fluid balance, not elsewhere classified; I95.9 Hypotension, unspecified; F03.90 Unspecified dementia, unspecified severity, without behavioral disturbance, psychotic disturbance, mood disturbance, and anxiety; Z95.0 Presence of cardiac pacemaker; Z79.899 Other long term (current) drug therapy; Z88.0 Allergy status to penicillin; Z79.01 Long term (current) use of anticoagulants; Z88.1 Allergy status to other antibiotic agents; Z95.5 Presence of coronary angioplasty implant and graft
CPT/HCPCS: 36415; 36430; 74176; 80048; 80053; 83690; 83735; 83880; 84484; 85025; 85610; 85730; 86850; 86900; 86901; 93005; J2470; J3430; J7120; J7168; P9016; P9048